=== PATIENT | male | born 1990 ===

== ENCOUNTER 2023-11-02 10:24 | Emergency (ER) | payer OTHER ==
--- NOTE | 2023-11-30 10:53 | XR ---
Patient: Jose Garcia Ordering Physician: Unknown, Unknown ID: [id number] Phone, Pager: Phone: N/A Pager: N/A : 1990 Age/Gender: 33Y, M Primary Location: N/A Procedure: RIGHT HUMERUS XRAY Study Date: 11/02/2023 11:26:10 AM EXAMINATION TYPE: Humerus X-Ray Right DATE OF EXAM: 11/02/2023 CLINICAL HISTORY: pain COMPARISON: NONE TECHNIQUE: Frontal and lateral images of the right humerus are obtained. FINDINGS: There is no acute fracture/dislocation evident. The joint spaces appear within normal limi ts. The overlying soft tissue appears unremarkable. IMPRESSION: There is no acute fracture or dislocation.ICD 10 NO FRACTURE, INITIAL EVALUATION
== END 2023-11-02 13:20 | disposition home or self-care (01) ==
LOC: EC 10:24
DX: M79.601 Pain in right arm (principal)
CPT/HCPCS: 99282

== ENCOUNTER → 2023-11-05 | Outpatient (CLI) | payer BC ==
--- NOTE | 2023-11-25 11:25 | MR ---
Report Patient: Jose Garcia Ordering Physician: Unknown, Unknown ID: [id number] Phone, Pager: Phone: N/A Pager: N/A : 1990 Age/Gender: 33Y, M Primary Location: N/A Procedure: MR Right elbow wo con Study Date: 11/05/2023 10:16:52 AM EXAMINATION TYPE: MR elbow LT wo con DATE OF EXAM: 11/06/2023 COMPARISON: No radiographic correlation available HISTORY: 33 year-old male right elbow pain, limited movement, injury 4 days ago TECHNIQUE: Multiplanar, multisequence images of the right elbow were obtained without IV contrast. FINDINGS: There is a distal biceps tendon rupture with some edema and hemorrhage in region along the defect whi ch measures 9.3 cm long up to the retracted balled up tendon stump. This is located approximately 4 c m above the elbow joint line in the lower arm. Physiologic elbow joint fluid without acute fracture seen. Triceps insertion is intact. Both common extensor and common flexor tendon origins are intact. Underlying LCL complex and UCL appear intact. No other significant soft tissue abnormality is seen. IMPRESSION: Complete rupture of the distal biceps tendon with retraction of 9.3 cm up into the lower arm. Associa constantin edema and hemorrhagic debris. The balled up tendon stump is located approximately 4 cm above the elbow joint line. [employer] text sent to Dr. Monroy at 11:33 AM.
== END | disposition home or self-care (01) ==
LOC: RADMRIMAIN 10:55
PROVIDERS: ATTEND Orthopaedic Surgery
DX: M66.821 Spontaneous rupture of other tendons, right upper arm (principal); R60.9 Edema, unspecified; R58 Hemorrhage, not elsewhere classified